=== PATIENT | female | born 1990 | race Two or more races ===

== ENCOUNTER → 2017-11-15 | Day surgery (SDC) | payer BC ==
[~2017-11-15] MED LIST: DEXAMETHASONE SOD PHOS 20 MG/5 ML VIAL.; LIDOCAINE 1% PF 2 ML VIAL. ID; LIDOCAINE 1% PF 5 ML VIAL.; MIDAZOLAM HCL/PF 2 MG/2 ML VIAL.; MORPHINE SULFATE 2 MG/ML DISP.SYRIN. IV; ONDANSETRON PF 4 MG/2 ML VIAL.; ONDANSETRON PF 4 MG/2 ML VIAL. IV; PROCHLORPERAZINE 10 MG/2 ML VIAL.; PROPOFOL 40 ML IV; fentaNYL PF VIAL 100 MCG/2 ML VIAL; fentaNYL PF VIAL 100 MCG/2 ML VIAL IV
[2017-11-15] MEDS: IV RINGERS,LACTATED 1000ML 1,000 ML IV (06:51)
[2017-11-15 07:23] LABS: U PREG PATIENT NEGATIVE (NEG)
[2017-11-15 07:24] LABS: NEG OBC UR NEG; POS OBC UR POS
[2017-11-15] MEDS: PROCHLORPERAZINE 10 MG/2 ML VIAL. IV (10:27)
== END | disposition home or self-care (01) ==
LOC: SURG 06:27
DX: N84.0 Polyp of corpus uteri (principal); E66.9 Obesity, unspecified
CPT/HCPCS: 58558; 81025; J0780; J1100; J2250; J2405; J2704; J3010